=== PATIENT | male | born 2000 | race Hispanic/Latino ===

== ENCOUNTER → 2023-10-29 | Outpatient (CLI) | payer OTHER | LOC: M RAD 07:39 → EDUNIT# 08:00 | PROVIDERS: ATTEND Orthopaedic Surgery | DX: Z47.89 Encounter for other orthopedic aftercare (principal); Z96.652 Presence of left artificial knee joint ==

== ENCOUNTER 2023-11-13 09:25 | Day surgery (SDC) | payer OTHER ==
[~2023-11-13] VITALS: Ht 188 cm; Wt 129.9 kg
[~2023-11-13 09:25] MED LIST: TRANEXAMIC ACID 100 MG/ML 10ML VIAL IV ONE
[2023-11-13] MEDS ORDERED: fentaNYL 100 MCG/2 ML INJECTION As Ordered ONE (10:18)
[2023-11-13] MEDS ORDERED: LIDOCAINE 2% 100MG/5ML SDV (FOR ANES.) As Ordered ONE (10:18)
[2023-11-13] MEDS ORDERED: MIDAZOLAM INJ 2MG/2ML VIAL As Ordered ONE (10:18)
[2023-11-13] MEDS ORDERED: ONDANSETRON 4MG 2ML VIAL As Ordered ONE (10:18)
[2023-11-13] MEDS ORDERED: propofoL 200 MG/20 ML VIAL As Ordered ONE ×2 (10:18→11:52)
[2023-11-13] MEDS ORDERED: ROCURONIUM BROMIDE 50MG/5ML VIAL As Ordered ONE ×2 (10:18→12:14)
[2023-11-13] MEDS ORDERED: ROPIvacaine 0.5% 30ML VIAL PN ONE (10:50)
[2023-11-13] MEDS ORDERED: LIDOCAINE 1% SDV 5ML VIAL PN ONE (10:50)
[2023-11-13] MEDS: MIDAZOLAM INJ 2MG/2ML VIAL IV PRN (10:59)
[2023-11-13] MEDS: fentaNYL 100 MCG/2 ML INJECTION IV PRN (10:59)
[2023-11-13] MEDS ORDERED: TRANEXAMIC ACID 100 MG/ML 10ML VIAL As Ordered ONE (11:15)
[2023-11-13] MEDS ORDERED: EPINEPHrine INJ 1 MG/ML 1ML AMP As Ordered ONE (11:15)
[2023-11-13] MEDS ORDERED: ceFAZolin 2 GM/D5W 50 ML IV BAG As Ordered ONE (11:32)
[2023-11-13] MEDS ORDERED: ACETAMINOPHEN 1000MG 100ML IV BAG As Ordered ONE (11:57)
[2023-11-13] MEDS ORDERED: dexmedeTOMIDine (4MCG/ML)200MCG/50ML BTL (PRECEDEX) As Ordered ONE (11:58)
[2023-11-13] MEDS ORDERED: SUGAMMADEX SODIUM 500 MG/5 ML VIAL (BRIDION) As Ordered ONE (12:13)
[2023-11-13] MEDS ORDERED: KETOROLAC 60MG 2ML VIAL As Ordered ONE (12:13)
[2023-11-13] MEDS ORDERED: fentaNYL 100 MCG/2 ML INJECTION IV PRN (15:25)
[2023-11-13] MEDS ORDERED: oxyCODONE 5MG TAB PO PRN (15:25)
[2023-11-13] MEDS ORDERED: ONDANSETRON 4MG 2ML VIAL IV PRN (15:25)
[2023-11-13] MEDS: MORPHINE 2 MG/ML 1ML VIAL IV PRN ×3 (16:11→16:27)
[2023-11-13 18:00] VITALS: BP 124/56; TEMP 98.8; O2SAT 97
== END 2023-11-13 18:05 | disposition home or self-care (01) ==
LOC: M SDC 09:25
PROVIDERS: ATTEND Orthopaedic Surgery
DX: M23.612 Other spontaneous disruption of anterior cruciate ligament of left knee (principal); F17.200 Nicotine dependence, unspecified, uncomplicated
CPT/HCPCS: 29888; 64425; C1713; C1762; J0131; J0171; J0690; J1100; J1885; J2250; J2405; J2795; J3010